=== PATIENT | male | born 1985 ===

== ENCOUNTER 2017-06-05 04:35 | Day surgery (SDC) | payer BC ==
[2017-06-02 16:05] LABS: BASOPHILS 0.2 %; BASOPHILS ABSOLUTE 0.02 10/3/uL (0.0-0.16); EOSINOPHILS 0.8 %; EOSINOPHILS ABSOLUTE 0.08 10/3/uL (0.0-0.53); HEMATOCRIT 45.3 % (40.0-51.0); HEMOGLOBIN 15.1 g/dL (13.6-17.8); IMMATURE GRANULOCYTES 0.3 %; IMMATURE GRANULOCYTES ABSOLUTE 0.03 10/3/uL (0.0-0.11); LYMPHOCYTES 19.6 %; MEAN CORPUS HGB CONC 33.3 g/dL (32.0-36.0); MEAN CORPUSCULAR HEMOGLOB 30.1 pg (26.0-34.0); MEAN CORPUSCULAR VOLUME 90.4 fL (80-100); MEAN PLATELET VOLUME 10.7 fL (9.2-13.0); MONOCYTES 8.2 %; MONOCYTES ABSOLUTE 0.79 10/3/uL (0.21-1.20); NEUTROPHILS 70.9 %; NEUTROPHILS ABSOLUTE 6.85 10/3/uL (2.02-8.40); PLATELET COUNT 223 10/3/uL (150-400); RBC DISTRIBUTION WIDTH 13.6 % (12.0-16.0); RED CELL COUNT 5.01 10/6/uL (4.7-6.1); WHITE BLOOD CELLS 9.7 10/3/uL (4.5-10.5)
[2017-06-02 16:10] LABS: MANUAL DIFF NO %
[2017-06-02 16:26] LABS: A/G RATIO 1.5 (0.7-1.9); ALBUMIN 4.5 G/DL (3.5-5.0); ALKALINE PHOSPHATASE 36 U/L (45-117); BUN (BLOOD UREA NITROGEN) 9 MG/DL (6-23); CALCIUM, SERUM 9.4 MG/DL (8.5-10.4); CHLORIDE, SERUM 104 MMOL/L (96-112); CO2 (CARBON DIOXIDE) 29 MMOL/L (24-34); CREATININE 0.86 MG/DL (0.70-1.30); GFR AFRICAN AMERICAN 133 ML/MIN (>=60); GFR NON AFRICAN AMERICAN 115 ML/MIN (>=60); GLUCOSE, SERUM 100 MG/DL (60-99); SGOT(AST) 14 U/L (5-40); SGPT(ALT) 23 U/L (5-65); SODIUM, SERUM 137 MMOL/L (135-148); TOTAL BILIRUBIN 0.4 MG/DL (0-1.2); TOTAL PROTEIN 7.5 G/DL (6.0-8.5)
[~2017-06-05] VITALS: Ht 167.6 cm; Wt 60.6 kg
--- NOTE | ~2017-06-05 | OP ---
Record Of Operation [facility] [address] [place]. [address] NAME: LORENE CHACON : 85 STATUS : [facility]#: [id number] AGE: 32 ADM/REG DATE : 06/05/17 MR#: [id number] REPORT SERV DATE: 06/06/17 DICTATED BY: ROBBY MORSE DATE: 06/06/17 REPORT STATUS : Draft TRANSCRIBED BY: MODJose DATE: 06/06/17 DATE OF PROCEDURE: 06/05/2017 PREOPERATIVE DIAGNOSIS: Left inguinal hernia. POSTOPERATIVE DIAGNOSIS: Large left indirect and small direct left inguinal hernia. PROCEDURE PERFORMED: Left inguinal herniorrhaphy with mesh. ANESTHESIA: General. ESTIMATED BLOOD LOSS: Minimal. SPECIMENS REMOVED: None. BRIEF HISTORY: Mr. Chacon is a 32-year-old gentleman, who has had a longstanding history of left inguinal hernia. This has been growing, becoming tender and symptomatic. He presents today for repair. FINDINGS AT TIME OF PROCEDURE: Mr. Chacon was noted to have a very large indirect inguinal hernia containing fatty tissue in a dilated internal inguinal ring. He also had a smaller direct inguinal hernia containing fatty tissue as well. The hernias were repaired using an extended piece of Ethicon Prolene Hernia System mesh. DETAILS: Following informed consent, the patient was taken to the operating room and placed supine on the OR table. After successful induction of general endotracheal anesthesia, his abdomen was prepped and draped in the usual sterile fashion. An Ioban adhesive drape was applied. A left lower quadrant oblique skin incision was made. Dissection was carried through skin, subcutaneous tissue, and Taylor's fascia using cautery. The external oblique aponeurosis was identified as was the external inguinal ring. The external oblique aponeurosis was then sharply incised and opened in direction of its fibers through the external inguinal ring. Spermatic cord was then identified and encircled with a Dana drain to protect the cord structures. The spermatic cord was carefully inspected. Cremasteric muscles were divided and there was no evidence of an indirect inguinal hernia. In the medial epigastric vessels, there was a large direct inguinal hernia. The transversalis fascia fibers overlying this were incised and the preperitoneal space was entered and developed bluntly with a Ray-Stephanie sponge. The Ray-Stephanie sponge was then removed, and an extended piece of Ethicon Prolene Hernia System mesh was deployed in the preperitoneal space. The anterior onlay portion of the mesh was then opened and secured medially to pubic tubercle using 2-0 Prolene suture. A slit was cut in the mesh to accommodate the spermatic cord, and the slit portion of the mesh was approximated around the spermatic cord using Prolene. The mesh was further fixated on the shelving edge of the ilioinguinal ligament and once the mesh had been properly fixated, we intentionally resected the ilioinguinal nerve to prevent nerve entrapment. The wound was then copiously irrigated. Hemostasis was found to be secure. The external oblique aponeurosis was then reapproximated using a running 2-0 PDS suture. Taylor's fascia was reapproximated using 3-0 Vicryl. 3-0 Record Of Operation [facility] [address] [facility] [place]. [address] NAME: LORENE CHACON : 85 STATUS : [facility]#: [id number] AGE: 32 ADM/REG DATE : 06/05/17 MR#: [id number] REPORT SERV DATE: 06/06/17 DICTATED BY: ROBBY MORSE DATE: 06/06/17 REPORT STATUS : Draft TRANSCRIBED BY: NHAN DATE: 06/06/17 Vicryl subdermals were applied followed by 4-0 Monocryl subcuticular suture and Dermabond. At the completion of the case, all sponge and needle counts were correct. The patient was extubated and transferred to recovery room in satisfactory condition, having suffered no apparent perioperative complications. ABBY/NHAN Robby Morse M.D. / [id number] CC: Robby Morse M.D.
[~2017-06-05 04:35] MED LIST: *DENIES
== END 2017-06-05 10:58 | disposition home or self-care (01) ==
LOC: SDC 04:35
PROVIDERS: Surgery
PROC: 0YU60JZ Supplement Left Inguinal Region with Synthetic Substitute, Open Approach (ICD-10-PCS; principal; 2017-06-05 05:45)
DX: K40.90 Unilateral inguinal hernia, without obstruction or gangrene, not specified as recurrent (principal); Z79.899 Other long term (current) drug therapy; Z87.891 Personal history of nicotine dependence; Z90.49 Acquired absence of other specified parts of digestive tract; Z98.890 Other specified postprocedural states
CPT/HCPCS: 80053; 85025; J0690; J1885; J2250; J2405; J2710; J3010